=== PATIENT | female | born 1995 | race African-American/Black ===

== ENCOUNTER 2020-01-08 12:41 | Emergency (ER) | payer OTHER, SELFPAY ==
[2020-01-08 13:09] VITALS: BP 110/63; PULSE 99; RESP 20; TEMP 36.9; O2SAT 100
--- NOTE | 2020-01-08 14:21 | ED.GENADULT ---
HPI - General Adult General Chief complaint: Skin/Abscess/Foreign Body Stated complaint: rash Time Seen by Provider: 01/08/20 14:13 Source: patient and RN notes reviewed Mode of arrival: ambulatory Limitations: no limitations History of Present Illness HPI narrative: 24-year-old -[place] female presents with complains of diffused raised, skin color, white, and itching rash to anterior and posterior trunk, extremities, and neck for the past 4 weeks. Eucerin cream and other OTC medications without relief. Denies new changes in personal hygiene products or laundry detergent. No new foods or medications. No swelling, burning, bleeding, or drainage. Denies fever, chills, weakness, fatigue, myalgia, facial swelling, or tongue swelling. Denies URI symptoms. LMP, 01/01/20. The patient reports she have not been diagnosed with COVID-19. The patient reports she is not waiting for the results of a COVID-19 lab test. The patient reports she do not have fever or chills. The patient reports she do not have a new or worsening cough or shortness of breath. Denies chest pain. The patient reports she do not have any rhinorrhea, congestion, sore throat, nausea, vomiting, abdominal pain, and diarrhea. Tolerating po intake well. Denies recent traveling. Denies concerns for COVID-19 or exposures been home since [id number] order except for essential household needs, working, and return home. At this time, patient is not suspected of having COVID-19. Complains of intermittent headaches without aura for the past 3 days. No treatment, says she does not like taking medication. Denies GOOD being the WORST one of her life. No neck stiffness. No fever or chills. No URI symptoms. Gradual onset started 3 days ago. No head injury. Denies history of migraines. Denies speech problems, dizziness, vision change, confusion, or seizure activity. Remains active. Some parts of this dictation were generated by voice recognition software and may contain typographical and/or grammatical inaccuracies. Related Data Allergies Allergy/AdvReac Type Severity Reaction Status Date / Time flu vaccine Allergy Rash Uncoded 01/08/20 14:15 Review of Systems Review of Systems: Narrative: CONSTITUTIONAL: Denies fever, chills, sweats. EYES: Denies visual changes, redness, discharge. ENT: Denies rhinorrhea, congestion, sore throat, otalgia. CARDIOVASCULAR: Denies chest pain, palpitations, edema. RESPIRATORY: Denies dyspnea, wheezing, cough. GASTROINTESTINAL: Denies abdominal pain, nausea, vomiting, diarrhea. GENITOURINARY: Denies dysuria, hematuria, abnormal discharge. SKIN: Complains of diffused raised, skin color, white, and itching rash to anterior and posterior trunk, extremities, and neck. Denies bruises, drainage. MUSCULOSKELETAL: Denies acute back pain, joint pain, or myalgia. NEUROLOGIC: Denies numbness or focal weakness. Complains of intermittent GOOD. PSYCHIATRIC: Denies anxiety or depression. All other systems reviewed are negative, except as documented in HPI and below. [facility] Past Medical History Medical History (Updated 01/09/20 @ 00:01 by Shiloh Villeda) Anemia delivery delivered Surgical History Surgical History (Updated 01/08/20 @ 14:27 by GONZALES Fatima) H/O section X2 History of dilation and curettage X2 Family History Family History (Updated 01/08/20 @ 14:28 by GONZALES Fatima) Father Hypertension Mother Hypertension Social History Social History (Updated 01/08/20 @ 14:28 by GONZALES Fatima) Smoking packs per day: 0.5 Smoking cigarettes per day: 10.0 Years smoked: 2 Smoking pack-years: 1.00 Smoking status: Current every day smoker Tobacco type: cigarettes Second hand tobacco smoke exposure: No Alcohol intake: never Substance use: never Occupation/Education: occupation Gender identity (if verbalized by the patient): Female Comments At time of signature, ag
[2020-01-08] MEDS: KETOROLAC (*BKC) 60 MG/2 ML VIAL IM (14:30)
== END 2020-01-08 14:51 | disposition home or self-care (01) ==
PROVIDERS: Emergency Provider Nurse Practitioner Family
DX: L42 Pityriasis rosea (principal); R51 Headache; F17.210 Nicotine dependence, cigarettes, uncomplicated; Z86.2 Personal history of diseases of the blood and blood-forming organs and certain disorders involving the immune mechanism
CPT/HCPCS: 96372; 99203; G0463; J1885